=== PATIENT | male | born 1995 | race Caucasian/White ===

== ENCOUNTER 2017-02-23 21:33 | Emergency (ER) | payer SELFPAY ==
[2017-02-23 21:39] VITALS: BMI 24.2
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
[2017-02-24] MEDS ORDERED: OXYCODONE/APAP 5/325MG COMBO TABLET PO ONE (00:57)
[2017-02-24] MEDS ORDERED: OXYCODONE/APAP 5/325MG COMBO TABLET ONE (00:59)
[2017-02-24 01:26] VITALS: BP 120/66; PULSE 84; TEMP 98
== END 2017-02-24 01:05 | disposition home or self-care (01) ==
LOC: JER 21:33
PROC: 0HQ0XZZ Repair Scalp Skin, External Approach (ICD-10-PCS; principal; 2017-02-23)
DX: S01.01XA Laceration without foreign body of scalp, initial encounter (principal); S10.81XA Abrasion of other specified part of neck, initial encounter; S50.311A Abrasion of right elbow, initial encounter; Y04.0XXA Assault by unarmed brawl or fight, initial encounter; Y93.89 Activity, other specified; Y92.89 Other specified places as the place of occurrence of the external cause
CPT/HCPCS: 70450-TC; 70486-TC; 72125-TC; 99282-25

== ENCOUNTER 2017-03-25 18:43 | Emergency (ER) | payer SELFPAY ==
[2017-03-25 18:46] VITALS: BP 124/76; PULSE 74; TEMP 98.2; BMI 25.8
--- NOTE | 2017-03-25 19:39 | PDOC ---
Suture Removal/Wound Check HPI - History of Present Illness Chief Complaint: Suture/Staple Removal(Here) Stated Complaint: SUTURE REMOVAL Time Seen by Provider: 03/25/17 19:18 History Source: Yes: Patient Exam Limitations: Yes: No Limitations Treated at: [facility] ED - Previous ED Treatment Type of procedure performed on last visit: Yes: Laceration Repair Antibiotics Prescribed: No Past History - Travel Traveled outside of the country in the last 30 days: No Close contact w/someone who was outside of country & ill: No - Past Medical History Allergies/Adverse Reactions: Allergies No Known Allergies Allergy (Verified 03/25/17 18:46) Home Medications: Ambulatory Orders Ibuprofen 800 mg PO TID #30 tablet 02/24/17 Oxycodone HCl/Acetaminophen [Percocet 5-325 mg Tablet] 1 - 2 tab PO Q6H #20 tablet MDD 4 02/24/17 General: Yes: no pertinent history - Immunization History Immunizations Up to Date: No - Social History Smoking Status: Current every day smoker Number of Ciarettes Per Day: 10 Suture Removal/Wound Check PE - Physical Exam Laceration/Wound Check Symptoms: reports: None Current Severity Level: None Maximum Severity Level: None Location of Laceration/Wound: bilateral: Head *Review of Systems - Review of Systems Able to Perform ROS?: Yes Constitutional: Yes: Symptoms Reported, See HPI, Malaise HEENTM: No: Symptoms Reported Respiratory: No: Symptoms reported Musculoskeletal: No: Symptoms Reported All Other Systems: Reviewed and Negative Medical Decision Making - Medical Decision Making 03/25/17 19:39 8 Toyin removed without incident, patient tolerated well *DC/Admit/Observation/Transfer Diagnosis at time of Disposition: Removal of toyin - Discharge Dispostion Disposition: HOME Condition at time of disposition: Stable Admit: No - Patient Instructions Printed Discharge Instructions: DI for Suture Removal
== END 2017-03-25 19:56 | disposition home or self-care (01) ==
LOC: JERFT 18:43
DX: Z48.01 Encounter for change or removal of surgical wound dressing (principal)
CPT/HCPCS: 99281-25